=== PATIENT | female | born 2000 ===

== ENCOUNTER 2023-12-27 12:28 | Outpatient (CLI) | payer OTHER | END 2023-12-27 12:31 | disposition home or self-care (01) | LOC: PRENATAL 12:28 | PROVIDERS: ATTEND Obstetrics & Gynecology Maternal & Fetal Medicine | DX: O35.3XX0 Maternal care for (suspected) damage to fetus from viral disease in mother, not applicable or unspecified (principal); O44.00 Complete placenta previa NOS or without hemorrhage, unspecified trimester; Z3A.20 20 weeks gestation of pregnancy ==

== ENCOUNTER 2024-03-21 08:46 | Outpatient (CLI) | payer OTHER | END 2024-03-21 08:47 | disposition home or self-care (01) | LOC: PRENATAL 08:46 | PROVIDERS: ATTEND Obstetrics & Gynecology Maternal & Fetal Medicine | DX: O26.849 Uterine size-date discrepancy, unspecified trimester (principal); O36.8199 Decreased fetal movements, unspecified trimester, other fetus; Z3A.33 33 weeks gestation of pregnancy ==

== ENCOUNTER 2024-05-05 12:53 | Outpatient (CLI) | payer OTHER ==
[2024-05-05 12:30] VITALS: BP 133/68
[2024-05-05] MEDS ORDERED: FAMOTIDINE/PF 20 MG/2 ML VIAL IV PUSH STA (13:04)
[2024-05-05] MEDS ORDERED: RINGERS SOLUTION,LACTATED 1,000 ML IV SCH (13:15)
[2024-05-05 13:45] LABS: URINE APPEARANCE Error; URINE BILIRRUBIN Negative (NEGATIVE); URINE BLOOD Negative; URINE COLOR Yellow; URINE GLUCOSE Negative (NEGATIVE); URINE KETONE Negative (NEGATIVE); URINE LEUKOCYTE Small; URINE NITRATE Negative; URINE PROTEIN Negative (NEGATIVE); URINE UROBILINOGEN 0.2 E.U./dl
[2024-05-05 13:55] LABS: URINE BACTERIA 5258.2 uL (0.0-1933); URINE CAST 1.91 uL (0.0-1.40); URINE EPITHELIAL CELLS 56.9 uL (0.0-38.8); URINE RBC 14.7 uL (0.0-20.8); URINE WBC 206.9 uL (0.0-23.2)
[2024-05-05 13:56] LABS: HEMOGLOBIN 10.7 g/dL (12.0-15.00); MEAN CELL VOLUME 84.7 fL (80.00-100.00); MEAN CORPUSCULAR HEMOGLOBIN 27.4 pg (27.00-32.0); MEAN CORPUSCULAR HGB CONC 32.4 g/dl (32.0-36.0); PLATELET COUNT 296 K/uL (150-450); RED BLOOD COUNT 3.89 M/uL (4.00-6.00); RED CELL DISTRIBUTION WIDTH 15.8 % (11.5-14.5)
[2024-05-05 15:22] VITALS: BP 135/76
[2024-05-05 19:31] VITALS: BP 115/75
[2024-05-05 23:07] VITALS: BP 123/80
[2024-05-06 04:05] VITALS: BP 127/70
[2024-05-06 05:58] VITALS: BP 105/66; O2SAT 100
[2024-05-06 11:39] VITALS: BP 127/79; O2SAT 99
[2024-05-07] MEDS ORDERED: PRENATABS RX T1 EACH PO (19:32)
[2024-05-07] MEDS ORDERED: LEVOTHYROXINE25 MCG PO (19:32)
== END 2024-05-06 12:31 | disposition home or self-care (01) ==
LOC: LDR 12:53 → OBS/DEL 12:53
PROVIDERS: Obstetrics & Gynecology; ATTEND Obstetrics & Gynecology
DX: O26.893 Other specified pregnancy related conditions, third trimester (principal); K52.9 Noninfective gastroenteritis and colitis, unspecified; Z3A.38 38 weeks gestation of pregnancy

== ENCOUNTER 2024-05-07 18:39 | Inpatient (IN) | payer OTHER ==
[~2024-05-07] VITALS: Ht 165.1 cm; Wt 91.6 kg
[2024-05-07 18:54] VITALS: BP 131/72
[2024-05-07] MEDS ORDERED: LEVOTHYROXINE25 MCG PO (19:32)
[2024-05-07] MEDS ORDERED: PRENATABS RX T1 EACH PO (19:32)
[2024-05-07] MEDS ORDERED: RINGERS SOLUTION,LACTATED 1,000 ML IV SCH (19:45)
[2024-05-07 20:04] LABS: URINE APPEARANCE Cloudy; URINE BILIRRUBIN Negative (NEGATIVE); URINE BLOOD Moderate; URINE COLOR Yellow; URINE GLUCOSE Negative (NEGATIVE); URINE KETONE 15 (NEGATIVE); URINE LEUKOCYTE Large; URINE NITRATE Negative; URINE PROTEIN Trace (NEGATIVE); URINE UROBILINOGEN 0.2 E.U./dl
[2024-05-07 20:04] LABS: HEMATOCRIT 32.1 % (36.0-45.00); HEMOGLOBIN 10.5 g/dL (12.0-15.00); MEAN CELL VOLUME 85.6 fL (80.00-100.00); MEAN CORPUSCULAR HEMOGLOBIN 27.8 pg (27.00-32.0); MEAN CORPUSCULAR HGB CONC 32.5 g/dl (32.0-36.0); PLATELET COUNT 279 K/uL (150-450); RED BLOOD COUNT 3.75 M/uL (4.00-6.00); RED CELL DISTRIBUTION WIDTH 15.8 % (11.5-14.5)
[2024-05-07 20:08] LABS: URINE CAST 1.61 uL (0.0-1.40); URINE EPITHELIAL CELLS 112.5 uL (0.0-38.8); URINE RBC 91.6 uL (0.0-20.8); URINE WBC 759.9 uL (0.0-23.2)
[2024-05-07 20:20] LABS: INR < 0.93; PARTIAL THROMBOPLASTIN TIME 24.6 SECONDS (22.0-34.0); PROTHROMBIN TIME 10.2 SECONDS (9.0-11.5)
[2024-05-07 20:24] LABS: URINE BACTERIA > 9821.5 uL (0.0-1933)
[2024-05-07] MEDS ORDERED: MISOPROSTOL 25 MCG TABLET VAG ONE (22:00)
[2024-05-07 23:35] VITALS: BP 134/79
[2024-05-07] MEDS ORDERED: PROMETHAZINE HCL 25 MG/ML AMPUL IV PRN (23:45)
[2024-05-07] MEDS ORDERED: MEPERIDINE HCL/PF 50 MG/ML VIAL IV PRN (23:45)
[2024-05-08] VITALS (16 sets, daily range): BP systolic 121–150; BP diastolic 52–98
[2024-05-08] MEDS ORDERED: OXYTOCIN 20 UNITS/500ML RL PIGGYBAG IV ONE (10:51)
[2024-05-08] MEDS ORDERED: OXYTOCIN 20 UNITS/500ML RL PIGGYBAG IV SCH (11:30)
[2024-05-08] MEDS ORDERED: OXYTOCIN 500 ML IV SCH (11:45)
[2024-05-08] MEDS ORDERED: ERYTHROMYCIN BASE OPHT 1GM EACH TUBE OP ONE ×2 (16:40→17:40)
[2024-05-08] MEDS ORDERED: CHLORHEXIDINE GLUCONATE 120 ML BOTTLE TOP ONE ×2 (16:41→17:20)
[2024-05-08] MEDS ORDERED: LIDOCAINE HCL 1% 10ML VIAL ONE (16:41)
[2024-05-08] MEDS ORDERED: OXYTOCIN 20 UNITS/1000ML RL PIGGYBAG IV ONE (16:41)
[2024-05-08] MEDS ORDERED: LIDOCAINE HCL 1% 10ML VIAL IJ ONE (17:45)
[2024-05-08] MEDS ORDERED: CHLORHEXIDINE GLUCONATE 120 ML BOTTLE TOP SCH (19:30)
[2024-05-08] MEDS ORDERED: OXYTOCIN 1,000 ML IV SCH (19:30)
[2024-05-08] MEDS ORDERED: ACETAMINOPHEN 500 MG GEL..CAP PO PRN (19:30)
[2024-05-08 23:27] LABS: HEMATOCRIT 32.8 % (36.0-45.00); HEMOGLOBIN 10.9 g/dL (12.0-15.00); MEAN CELL VOLUME 84.4 fL (80.00-100.00); MEAN CORPUSCULAR HGB CONC 33.2 g/dl (32.0-36.0); PLATELET COUNT 271 K/uL (150-450); RED BLOOD COUNT 3.88 M/uL (4.00-6.00)
[2024-05-09 03:06] VITALS: BP 125/60
[2024-05-09 07:35] VITALS: BP 131/64
[2024-05-09] MEDS ORDERED: PNV,CALCIUM 72/IRON/FOLIC ACID 1 TAB TABLET PO SCH (09:00)
[2024-05-09 11:05] VITALS: BP 114/62; O2SAT 97
[2024-05-09 15:30] VITALS: BP 119/81
[2024-05-09 18:00] VITALS: BP 117/80
[2024-05-09 20:00] VITALS: BP 128/84
[2024-05-10 00:32] VITALS: BP 140/84
[2024-05-10 08:00] VITALS: BP 121/76
== END 2024-05-10 19:49 | disposition home or self-care (01) | DRG 807 ==
LOC: LDR 18:39 → OB/GYN 05-08 18:32 → LDR 05-08 18:41 → OB/GYN 05-09 14:27
PROVIDERS: ADMIT Obstetrics & Gynecology; ATTEND Obstetrics & Gynecology
PROC: 3E0P7VZ Introduction of Hormone into Female Reproductive, Via Natural or Artificial Opening (ICD-10-PCS; 2024-05-07)
PROC: 4A1HXCZ Monitoring of Products of Conception, Cardiac Rate, External Approach (ICD-10-PCS; 2024-05-07)
PROC: 10E0XZZ Delivery of Products of Conception, External Approach (ICD-10-PCS; principal; 2024-05-08)
PROC: 0KQM0ZZ Repair Perineum Muscle, Open Approach (ICD-10-PCS; 2024-05-08)
PROC: 3E033VJ Introduction of Other Hormone into Peripheral Vein, Percutaneous Approach (ICD-10-PCS; 2024-05-08)
DX: O70.1 Second degree perineal laceration during delivery (principal); Z37.0 Single live birth; Z3A.39 39 weeks gestation of pregnancy